=== PATIENT | female | born 2000 | race African-American/Black ===

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

== ENCOUNTER 2019-09-25 23:50 | Emergency (ER) | payer OTHER ==
[~2019-09-25] VITALS: Ht 165.1 cm; Wt 63.7 kg
[2019-09-25 23:51] VITALS: BP 119/72
[2019-09-26] MEDS ORDERED: KEFL500C17 PO (00:28)
[2019-09-26] MEDS ORDERED: CEPHALEXIN 500 MG CAP PO ONE (00:30)
== END 2019-09-26 00:36 | disposition home or self-care (01) ==
LOC: M ED 23:50
DX: L03.011 Cellulitis of right finger (principal); F17.200 Nicotine dependence, unspecified, uncomplicated